=== PATIENT | male | born 1985 | race American Indian/Alaskan Native ===

== ENCOUNTER 2019-01-03 00:19 | Emergency (ER) | payer MEDICAID, OTHER ==
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
== END 2019-01-03 05:37 | disposition home or self-care (01) ==
LOC: JP.ED 00:19 → EDBD 00:19 → JP.ED 05:37
DX: S01.81XA Laceration without foreign body of other part of head, initial encounter (principal); F10.120 Alcohol abuse with intoxication, uncomplicated; Y90.8 Blood alcohol level of 240 mg/100 ml or more; Y04.0XXA Assault by unarmed brawl or fight, initial encounter
CPT/HCPCS: 36415; 70450; 70486; 80048; 80305-QW; 85025; 99283; 99285-25; G0480